=== PATIENT | male | born 1985 | race Caucasian/White ===

== ENCOUNTER → 2025-02-09 15:27 | Outpatient (REF) | payer OTHER, SELFPAY ==
--- OUTSIDE RECORDS SUMMARY | 2025-02-09 17:26 | XMS_ITS | Clinical Summary ---
Author Organization [facility] Address [address] [place] [address] Care Team Providers Care Interactive Media Marketing Director Name Role Phone Grey Mederos Primary Care Provider [phone] Pollo Johnston MD Unavailable Unavailable Allergies No known active allergies Medications omeprazole 20 MG capsule Take 20 mg by mouth daily. Active ciprofloxacin 500 MG tablet Take 500 mg by mouth 2 (two) times daily. 08/30/2021 Active Active Problems Problem Noted Date Diagnosed Date Chest pain, unspecified type 02/15/2021 Psoriasis 05/07/2018 Immunizations Name Administration Dates Next Due Dtp 01/08/1990, 7,03/21/1985,1984,1983 Hepatitis B Pediatric 10/17/2000,07/23/2000 Influenza Adult (Generic) 09/09/2018,09/17/2017 MMR 08/02/1993,08/15/1987 Opv 01/08/1990,03/21/1985,1984 ,1984 Td 07/23/2000 Social History Tobacco Use Types Packs/Day Years Used Date Smoking Tobacco: Every Day Electronic Cigarettes Smokeless Tobacco: Current Chew Tobacco Cessation:Ready to Q uit: Yes; Counseling Given: Yes Alcohol Use Standard Drinks/Week Comments Yes 0 (1 standard drink = 0.6 oz pur e alcohol) OCCASIONAL Sex and Gender Information Value Date Recorded Sex Assigned at Not on file Legal Sex Male 9:07 PM CDT Gender Identity Not on file Sexual Orientation Not on file Last Filed Vital Signs Vital Sign Reading Time Taken Comments Blood Pressure 113/74 09/01/2021 1:15 PM CDT Pulse 62 09/01/2021 1:15 PM CDT Temperature 36.2 C (97.2 F) 09/01/2021 10:44 AM CDT Respiratory Rate 15 09/01/2021 1:15 PM CDT Oxygen Saturation 99% 09/01/2021 1:15 PM CDT Inhaled Oxygen Concentration - - Weight 90.3 kg (199 lb) 09/01/2021 10:44 AM CDT Height 180.3 cm (5' 11 ) 09/01/2021 10:44 AM CDT Body Mass Index 27.75 09/01/2021 10:44 AM CDT Plan of Treatment Health Maintenance Due Date Last Done Comments Annual Physical 1987 Pneumococcal Vaccine: Pediatrics (0 to 5 Years) and At-Risk Patients (6 to 64 Years) (1 of 2 - PCV) 1990 DTaP, Tdap and Td Vaccines (2 - Tdap) 07/24/2000 07/23/2000, 01/08/1990, 08/15/1987, Additional history exists Hepatitis B Vaccines (3 of 3 - 3-dose series) 12/12/2000 10/17/2000, 07/23/2000 Hepatitis C 2002 COVID-19 Vaccine ( season) 2024 Influenza Adult (#1) 2024 09/09/2018, 09/17/20 17 HPV Vaccines Aged Out No longer eligi ble based on patient's age to complete this topic Meningococcal B Vaccine Aged Out No l onger eligible based on patient's age to complete this topic Meningococcal Vaccine Aged Out No kanu blaine eligible based on patient's age to complete this topic RSV Immunizations Under 20 Months Aged Out No longer eligible based on patient's age to complete this topic Insurance [facility] Care Teams Interactive Media Marketing Director Relationship Specialty Start Date End Date Grey Mederos PA [address] [place] [phone] PCP - General PHYSICIAN DEPUTY ADMINISTRATOR 10/23/19 Pollo Johnston MD [address] [place] [phone] [employer] [place] [employer] INTERVENTIONAL CARDIOLOGY 02/14/21
== END ==
LOC: ANHLAB 15:27
PROVIDERS: Visit Provider Plastic Surgery
DX: D18.01 Hemangioma of skin and subcutaneous tissue (principal)
CPT/HCPCS: 88305